=== PATIENT | female | born 1990 | race Caucasian/White ===

== ENCOUNTER 2020-11-04 10:19 | Inpatient (IN) ==
[2020-11-04] MEDS ORDERED: PANTOPRAZOLE 40 MG TABLET PO ONE (10:45)
[2020-11-04] MEDS ORDERED: DIAZEPAM 5 MG TABLET PO ONE ×2 (10:45→10:48)
[2020-11-04] MEDS ORDERED: LACTATED RINGERS 1,000 ML IV SCH ×2 (11:00→14:30)
[2020-11-04] MEDS ORDERED: ceFAZolin 2,000 MG/50 ML DUPLEX IV ONE (11:10)
[2020-11-04] MEDS ORDERED: LIDOCAINE 1% 5 ML VIAL ONE (11:31)
[2020-11-04 11:48] LABS: Basophils % 0.2 % (0.0-0.8); Eosinophils % 0.5 % (0.00-10.9); Hematocrit 41.7 VOL% (35.7-47.0); Hemoglobin 13.7 GM/DL (12.0-16.0); Immature Granulocytes % 0.7 %; Immature Granulocytes Absolute 0.06 #; Lymphocytes # 1.6 10*3/uL (1.4-4.0); Lymphocytes % 18.6 % (21.3-54.2); Mean Corpuscular HGB Conc 32.9 GM/DL (32-36); Mean Corpuscular Volume 83.2 FL (87-102); Mean Platelet Volume 10.4 FL (9.6-12.0); Monocytes % 5.3 % (1.7-12.7); Neutrophils % 74.7 % (38.7-73.9); Platelet Count 235 T/CUMM (130-400); Red Blood Count 5.01 MC/CUMM (3.8-5.5); Red Cell Distribution Width 12.2 % (9.3-17.3); White Blood Count 8.5 T/CUMM (4-12)
[2020-11-04 11:54] LABS: Potassium 3.9 MMOL/L (3.5-5.1)
[2020-11-04] MEDS ORDERED: ONDANSETRON 4 MG/2 ML VIAL ONE ×2 (11:54→12:46)
[2020-11-04] MEDS ORDERED: propofoL 200 MG/20 ML VIAL IV ONE (11:54)
[2020-11-04] MEDS ORDERED: MIDAZOLAM 2 MG/2 ML VIAL ONE (11:55)
[2020-11-04] MEDS ORDERED: fentaNYL 100 MCG/2 ML VIAL ONE ×2 (11:55→13:02)
[2020-11-04] MEDS ORDERED: SEVOFLURANE 1 UNIT/15 MINUTE INH ONE ×2 (12:04→14:04)
[2020-11-04] MEDS ORDERED: LIDOCAINE 2% 5 ML VIAL ONE (12:42)
[2020-11-04] MEDS ORDERED: ACETAMINOPHEN INJ 1,000 MG/100 ML VIAL IV ONE (12:42)
[2020-11-04] MEDS ORDERED: KETOROLAC 30 MG/1 ML VIAL ONE (12:45)
[2020-11-04] MEDS ORDERED: ROPIVACAINE 0.5% 30 ML VIAL ONE (13:01)
[2020-11-04] MEDS ORDERED: DEXAMETHASONE 4 MG/1 ML VIAL ONE (13:02)
[2020-11-04] MEDS ORDERED: ESMOLOL 100 MG/10 ML VIAL IV ONE (13:29)
[2020-11-04] MEDS ORDERED: DEXTROSE 50% 25 GM/50 ML VIAL IV PRN (14:05)
[2020-11-04] MEDS ORDERED: GLUCAGON 1 MG VIAL IM PRN (14:05)
[2020-11-04] MEDS ORDERED: MAGNESIUM HYDROXIDE SUSP 30 ML UDCUP PO PRN (14:06)
[2020-11-04] MEDS ORDERED: KETOROLAC 30 MG/1 ML VIAL IV PRN (14:07)
[2020-11-04] MEDS ORDERED: ONDANSETRON 4 MG/2 ML VIAL IV PRN (14:07)
[2020-11-04] MEDS ORDERED: MORPHINE 4 MG/1 ML VIAL IV PRN (14:07)
[2020-11-04] MEDS ORDERED: diphenhydrAMINE CAP 25 MG CAPSULE PO PRN (14:07)
[2020-11-04] MEDS ORDERED: VANCOMYCIN INJ 1,250 MG in SODIUM CHLORIDE 0.9% 250 ML IV SCH (14:30)
[2020-11-04] MEDS: VANCOMYCIN INJ 1,500 MG in SODIUM CHLORIDE 0.9% 500 ML IV SCH (17:05)
[2020-11-04] MEDS: INSULIN LISPRO 100 UNIT/ML SUBCUT SCH ×2 (18:10→21:43)
[2020-11-04] MEDS: INSULIN GLARGINE 100 UNIT/ML SUBCUT SCH (21:43)
[2020-11-04] MEDS: GABAPENTIN 400 MG CAPSULE PO SCH (21:43)
[2020-11-05] MEDS: VANCOMYCIN INJ 1,500 MG in SODIUM CHLORIDE 0.9% 500 ML IV SCH ×2 (03:35→16:54)
[2020-11-05 06:05] LABS: Basophils % 0.1 % (0.0-0.8); Eosinophils % 0.1 % (0.00-10.9); Immature Granulocytes % 0.4 %; Immature Granulocytes Absolute 0.04 #; Lymphocytes % 21.4 % (21.3-54.2); Mean Corpuscular HGB Conc 32.4 GM/DL (32-36); Mean Corpuscular Volume 85.5 FL (87-102); Mean Platelet Volume 10.5 FL (9.6-12.0); Platelet Count 230 T/CUMM (130-400); Red Blood Count 4.33 MC/CUMM (3.8-5.5); Red Cell Distribution Width 12.4 % (9.3-17.3); White Blood Count 9.2 T/CUMM (4-12)
[2020-11-05 06:24] LABS: Alanine Aminotransferase 36 U/L (13-56); Albumin 2.9 G/DL (3.4-5.0); Alkaline Phosphatase 201 U/L (45-117); Aspartate Amino Transferase 17 U/L (0-37); Bilirubin,Total < 0.39 MG/DL (0.2-1.0); Blood Urea Nitrogen 12 MG/DL (7-18); Calcium 8.7 MG/DL (8.5-10.1); Carbon Dioxide 26 MMOL/L (21-32); Estimated Glom Filtration Rate 172 ML/MIN; Glucose 231 MG/DL (74-106); Osmolality,Calculated 287.3 MOS/KG (273-304); Potassium 3.7 MMOL/L (3.5-5.1); Sodium 141 MMOL/L (136-145); Total Protein 6.8 G/DL (6.4-8.2)
[2020-11-05 06:29] LABS: Risk Ratio 5.44; VLDL Cholesterol 33.8 MG/DL
[2020-11-05 06:35] LABS: Calcium 8.7 MG/DL (8.5-10.1); Osmolality,Calculated 285.4 MOS/KG (273-304); Potassium 3.7 MMOL/L (3.5-5.1)
[2020-11-05 07:16] LABS: Sedimentation Rate-Westergren 57 MM/HR (0-20)
[2020-11-05] MEDS: INSULIN LISPRO 100 UNIT/ML SUBCUT SCH ×4 (08:08→20:57)
[2020-11-05] MEDS: INSULIN GLARGINE 100 UNIT/ML SUBCUT SCH (09:00)
[2020-11-05] MEDS: ROSUVASTATIN 20 MG TABLET PO SCH (09:32)
[2020-11-05] MEDS: GABAPENTIN 400 MG CAPSULE PO SCH ×3 (09:32→20:56)
[2020-11-05] MEDS: lisinopriL 10 MG TABLET PO SCH (09:32)
[2020-11-05] MEDS: risperiDONE 1 MG TABLET PO SCH (09:33)
[2020-11-05] MEDS: FONDAPARINUX 2.5 MG/0.5 ML SYRINGE SUBCUT SCH (09:36)
[2020-11-05] MEDS: VANCOMYCIN INJ 1,250 MG in SODIUM CHLORIDE 0.9% 250 ML IV SCH (17:58)
[2020-11-05] MEDS ORDERED: INSULIN GLARGINE 100 UNIT/ML SUBCUT SCH (21:00)
[2020-11-06] MEDS: VANCOMYCIN INJ 1,250 MG in SODIUM CHLORIDE 0.9% 250 ML IV SCH ×3 (02:56→17:49)
[2020-11-06 06:27] LABS: Basophils % 0.4 % (0.0-0.8); Eosinophils % 0.6 % (0.00-10.9); Hematocrit 34.5 VOL% (35.7-47.0); Hemoglobin 11.4 GM/DL (12.0-16.0); Immature Granulocytes % 0.3 %; Immature Granulocytes Absolute 0.02 #; Lymphocytes # 2.3 10*3/uL (1.4-4.0); Lymphocytes % 32.3 % (21.3-54.2); Mean Corpuscular Volume 85.2 FL (87-102); Mean Platelet Volume 10.2 FL (9.6-12.0); Monocytes % 6.7 % (1.7-12.7); Neutrophils % 59.7 % (38.7-73.9); Platelet Count 200 T/CUMM (130-400); Red Blood Count 4.05 MC/CUMM (3.8-5.5); Red Cell Distribution Width 12.8 % (9.3-17.3); White Blood Count 7.2 T/CUMM (4-12)
[2020-11-06 06:42] LABS: Calcium 8.5 MG/DL (8.5-10.1); Osmolality,Calculated 286.4 MOS/KG (273-304); Potassium 3.7 MMOL/L (3.5-5.1)
[2020-11-06] MEDS: ROSUVASTATIN 20 MG TABLET PO SCH (09:24)
[2020-11-06] MEDS: INSULIN LISPRO 100 UNIT/ML SUBCUT SCH ×4 (09:24→20:26)
[2020-11-06] MEDS: lisinopriL 10 MG TABLET PO SCH (09:25)
[2020-11-06] MEDS: GABAPENTIN 400 MG CAPSULE PO SCH ×3 (09:25→20:25)
[2020-11-06] MEDS: INSULIN GLARGINE 100 UNIT/ML SUBCUT SCH ×2 (09:25→20:25)
[2020-11-06] MEDS: risperiDONE 1 MG TABLET PO SCH (09:26)
[2020-11-06] MEDS: FONDAPARINUX 2.5 MG/0.5 ML SYRINGE SUBCUT SCH (10:17)
[2020-11-07] MEDS: VANCOMYCIN INJ 1,250 MG in SODIUM CHLORIDE 0.9% 250 ML IV SCH ×3 (02:59→22:55)
[2020-11-07 05:11] LABS: Basophils % 0.3 % (0.0-0.8); Eosinophils # 0.1 10*3/uL (0.0-0.87); Eosinophils % 0.9 % (0.00-10.9); Hematocrit 34.2 VOL% (35.7-47.0); Hemoglobin 11.4 GM/DL (12.0-16.0); Immature Granulocytes % 0.3 %; Immature Granulocytes Absolute 0.02 #; Lymphocytes # 2.1 10*3/uL (1.4-4.0); Lymphocytes % 28.3 % (21.3-54.2); Mean Corpuscular HGB Conc 33.3 GM/DL (32-36); Mean Corpuscular Volume 84.2 FL (87-102); Monocytes % 8.2 % (1.7-12.7); Platelet Count 196 T/CUMM (130-400); Red Blood Count 4.06 MC/CUMM (3.8-5.5); Red Cell Distribution Width 12.4 % (9.3-17.3); White Blood Count 7.4 T/CUMM (4-12)
[2020-11-07 05:41] LABS: Calcium 8.5 MG/DL (8.5-10.1); Potassium 3.5 MMOL/L (3.5-5.1)
[2020-11-07] MEDS: INSULIN LISPRO 100 UNIT/ML SUBCUT SCH ×4 (08:15→21:18)
[2020-11-07] MEDS: INSULIN GLARGINE 100 UNIT/ML SUBCUT SCH ×2 (09:00→21:17)
[2020-11-07] MEDS: lisinopriL 10 MG TABLET PO SCH (09:57)
[2020-11-07] MEDS ORDERED: ROPIVACAINE 0.5% 30 ML VIAL ONE ×2 (10:14→10:15)
[2020-11-07] MEDS ORDERED: DEXAMETHASONE 4 MG/1 ML VIAL ONE (10:14)
[2020-11-07] MEDS ORDERED: BACITRACIN OINT 0.9 GM PACK TOP ONE (10:22)
[2020-11-07] MEDS ORDERED: MIDAZOLAM 2 MG/2 ML VIAL ONE (10:55)
[2020-11-07] MEDS ORDERED: PANTOPRAZOLE 40 MG TABLET PO ONE (11:00)
[2020-11-07] MEDS ORDERED: LACTATED RINGERS 1,000 ML IV SCH ×2 (11:00)
[2020-11-07] MEDS ORDERED: DIAZEPAM 5 MG TABLET PO ONE (11:00)
[2020-11-07] MEDS ORDERED: fentaNYL 100 MCG/2 ML VIAL ONE (11:23)
[2020-11-07] MEDS ORDERED: GLYCOPYRROLATE 0.4 MG/2 ML VIAL ONE (11:24)
[2020-11-07] MEDS ORDERED: LIDOCAINE 2% 5 ML VIAL ONE (11:29)
[2020-11-07] MEDS ORDERED: propofoL 200 MG/20 ML VIAL IV ONE (11:29)
[2020-11-07] MEDS ORDERED: SEVOFLURANE 1 UNIT/15 MINUTE INH ONE (12:28)
[2020-11-07] MEDS ORDERED: PERMETHRIN 1% LOTION 59 ML BOTTLE TOP ONE (13:03)
[2020-11-07] MEDS: GABAPENTIN 400 MG CAPSULE PO SCH ×3 (14:29→21:17)
[2020-11-07] MEDS: risperiDONE 1 MG TABLET PO SCH (14:30)
[2020-11-07] MEDS: ROSUVASTATIN 20 MG TABLET PO SCH (14:30)
[2020-11-07] MEDS: CIPROFLOXACIN 500 MG TABLET PO SCH (17:13)
[2020-11-08 05:53] LABS: Basophils % 0.1 % (0.0-0.8); Eosinophils # 0.1 10*3/uL (0.0-0.87); Eosinophils % 1.3 % (0.00-10.9); Hematocrit 35.8 VOL% (35.7-47.0); Hemoglobin 11.7 GM/DL (12.0-16.0); Immature Granulocytes % 0.3 %; Immature Granulocytes Absolute 0.02 #; Lymphocytes # 2.2 10*3/uL (1.4-4.0); Lymphocytes % 28.5 % (21.3-54.2); Mean Corpuscular HGB Conc 32.7 GM/DL (32-36); Mean Corpuscular Volume 85.9 FL (87-102); Mean Platelet Volume 10.2 FL (9.6-12.0); Monocytes % 6.9 % (1.7-12.7); Neutrophils % 62.9 % (38.7-73.9); Platelet Count 221 T/CUMM (130-400); Red Blood Count 4.17 MC/CUMM (3.8-5.5); Red Cell Distribution Width 12.6 % (9.3-17.3); White Blood Count 7.7 T/CUMM (4-12)
[2020-11-08] MEDS: VANCOMYCIN INJ 1,250 MG in SODIUM CHLORIDE 0.9% 250 ML IV SCH (05:53)
[2020-11-08 06:14] LABS: Calcium 9.1 MG/DL (8.5-10.1); Osmolality,Calculated 281.4 MOS/KG (273-304); Potassium 3.5 MMOL/L (3.5-5.1)
[2020-11-08 06:16] LABS: Calcium 9.1 MG/DL (8.5-10.1); Osmolality,Calculated 282.3 MOS/KG (273-304); Potassium 3.5 MMOL/L (3.5-5.1)
[2020-11-08] MEDS: INSULIN LISPRO 100 UNIT/ML SUBCUT SCH ×2 (08:14→12:09)
[2020-11-08] MEDS: risperiDONE 1 MG TABLET PO SCH (09:25)
[2020-11-08] MEDS: CIPROFLOXACIN 500 MG TABLET PO SCH (09:25)
[2020-11-08] MEDS: lisinopriL 10 MG TABLET PO SCH (09:25)
[2020-11-08] MEDS: GABAPENTIN 400 MG CAPSULE PO SCH (09:25)
[2020-11-08] MEDS: ROSUVASTATIN 20 MG TABLET PO SCH (09:25)
[2020-11-08] MEDS: INSULIN GLARGINE 100 UNIT/ML SUBCUT SCH (09:26)
[2020-11-08] MEDS: FONDAPARINUX 2.5 MG/0.5 ML SYRINGE SUBCUT SCH (11:07)
[2020-11-08 11:31] VITALS: BP 124/71
== END 2020-11-08 12:40 | disposition home health service (06) | DRG 493 ==
LOC: N.OR 10:19 → N.SDSINP 11:36 → N.3E 14:06
PROVIDERS: ADMIT Orthopaedic Surgery; ATTEND Orthopaedic Surgery

== ENCOUNTER 2022-05-28 17:41 | Inpatient (IN) ==
[2022-05-28] MEDS ORDERED: SODIUM CHLORIDE 0.9% 1,000 ML IV STA ×2 (18:45→20:02)
[2022-05-28 18:58] LABS: Basophils % 0.1 % (0.0-0.8); Hematocrit 37.4 VOL% (35.7-47.0); Hemoglobin 12.9 GM/DL (12.0-16.0); Immature Granulocytes % 0.4 %; Immature Granulocytes Absolute 0.06 #; Lymphocytes # 1.2 10*3/uL (1.4-4.0); Lymphocytes % 8.2 % (21.3-54.2); Mean Corpuscular HGB Conc 34.5 GM/DL (32-36); Mean Corpuscular Volume 80.3 FL (87-102); Mean Platelet Volume 11.2 FL (9.6-12.0); Monocytes # 0.9 10*3/uL (0.11-0.8); Monocytes % 6.1 % (1.7-12.7); Neutrophils % 85.2 % (38.7-73.9); Platelet Count 303 T/CUMM (130-400); Red Blood Count 4.66 MC/CUMM (3.8-5.5); Red Cell Distribution Width 12.8 % (9.3-17.3); White Blood Count 14.5 T/CUMM (4-12)
[2022-05-28 19:21] LABS: Arterial Base Excess iSTAT 2 MMOL/L (-2.5-2.5); Arterial Bicarbonate iSTAT 25.6 MMOL/L (20-26); Arterial O2 Saturation iSTAT 95 % (95-100); Arterial PCO2 iSTAT 35 MM HG (35-48); Arterial PO2 iSTAT 69 MM HG (80-95); Arterial Total CO2 iSTAT 27 MMO/L (23-27); Arterial pH iSTAT 7.468 (7.35-7.45)
[2022-05-28 19:52] LABS: Calcium 10.1 MG/DL (8.5-10.1); Osmolality,Calculated 284.5 MOS/KG (273-304); Potassium 2.6 MMOL/L (3.5-5.1)
[2022-05-28 20:00] LABS: Bacteria,Urine Occasional /HPF (Few); Mucus,Urine Occasional /LPF (Occasional); RBC,Urine 1 /HPF (0-4)
[2022-05-28 20:01] LABS: Bilirubin,Urine Negative (Negative); Blood, Urine Small mg/dL (Negative); Glucose,Urine (UA) >=1000 mg/dL (Negative); Ketones,Urine 80 mg/dL (Negative); Nitrite,Urine Negative (Negative); Protein,Urine Negative (Negative); Urine Appearance Clear (Clear); Urine Color Yellow (Yellow); Urine Specific Gravity 1.003 (1.001-1.035); Urine Urobilinogen 0.2 eU/dL (<2.0)
[2022-05-28] MEDS: POTASSIUM CHLORIDE RIDER 10 MEQ/100 ML PREMIX IV SCH ×4 (20:21→23:44)
[2022-05-28] MEDS ORDERED: ONDANSETRON 4 MG/2 ML VIAL IV PRN (21:48)
[2022-05-28] MEDS ORDERED: ALBUTEROL 2.5 MG/3 ML NEB RESP TX PRN (21:48)
[2022-05-28] MEDS ORDERED: INSULIN REGULAR DRIP 100 ML IV PRN (21:53)
[2022-05-28] MEDS ORDERED: INSULIN REGULAR 100 UNIT/ML IV STA (21:53)
[2022-05-28] MEDS ORDERED: INSULIN REGULAR 100 UNIT/ML SUBCUT STA (21:53)
[2022-05-28] MEDS ORDERED: LACTATED RINGERS 1,000 ML IV ONE (21:54)
[2022-05-28] MEDS ORDERED: hydrALAZINE 20 MG/1 ML VIAL IV PRN (21:58)
[2022-05-28] MEDS: ENOXAPARIN 40 MG/0.4 ML SYRINGE SUBCUT SCH (22:39)
[2022-05-28 22:59] LABS: Calcium 9.3 MG/DL (8.5-10.1); Osmolality,Calculated 280.8 MOS/KG (273-304); Potassium 3.1 MMOL/L (3.5-5.1)
[2022-05-28] MEDS: LACTATED RINGERS 1,000 ML IV SCH (23:43)
[2022-05-28] MEDS: risperiDONE 1 MG TABLET PO SCH (23:45)
[2022-05-29] MEDS ORDERED: INSULIN REGULAR 100 UNIT/ML SUBCUT SCH (02:00)
[2022-05-29] MEDS: cloNIDine 0.1 MG TABLET PO SCH ×2 (02:36→20:26)
[2022-05-29] MEDS: INSULIN REGULAR 100 UNIT/ML SUBCUT SCH ×5 (05:02→20:23)
[2022-05-29] MEDS: LACTATED RINGERS 1,000 ML IV SCH ×4 (05:03→18:49)
[2022-05-29 05:19] LABS: Basophils % 0.1 % (0.0-0.8); Eosinophils % 0.1 % (0.00-10.9); Hematocrit 29.9 VOL% (35.7-47.0); Hemoglobin 10.4 GM/DL (12.0-16.0); Immature Granulocytes % 0.3 %; Immature Granulocytes Absolute 0.03 #; Lymphocytes # 1.9 10*3/uL (1.4-4.0); Lymphocytes % 20.3 % (21.3-54.2); Mean Corpuscular HGB Conc 34.8 GM/DL (32-36); Mean Corpuscular Volume 79.5 FL (87-102); Mean Platelet Volume 10.7 FL (9.6-12.0); Monocytes # 0.6 10*3/uL (0.11-0.8); Monocytes % 6.5 % (1.7-12.7); Neutrophils % 72.7 % (38.7-73.9); Platelet Count 225 T/CUMM (130-400); Red Blood Count 3.76 MC/CUMM (3.8-5.5); Red Cell Distribution Width 12.8 % (9.3-17.3); White Blood Count 9.2 T/CUMM (4-12)
[2022-05-29 05:58] LABS: Calcium 8.9 MG/DL (8.5-10.1); Osmolality,Calculated 274.2 MOS/KG (273-304)
[2022-05-29 06:04] LABS: Potassium 2.4 MMOL/L (3.5-5.1)
[2022-05-29] MEDS: POTASSIUM CHLORIDE RIDER 10 MEQ/100 ML PREMIX IV PRN ×3 (06:21→09:47)
[2022-05-29] MEDS ORDERED: NON-FORMULARY MEDICATION (Insulin Aspart U-100 [Novolog Flexpen U-100 Insulin] 100 unit/mL SUBCUT SCH (08:00)
[2022-05-29] MEDS: PANTOPRAZOLE 40 MG TABLET PO SCH (08:12)
[2022-05-29] MEDS: GABAPENTIN 400 MG CAPSULE PO SCH ×2 (08:12→20:21)
[2022-05-29] MEDS ORDERED: RISPERIDONE 2 MG PO SCH (09:00)
[2022-05-29] MEDS ORDERED: INSULIN GLARGINE 100 UNIT/ML SUBCUT SCH (09:00)
[2022-05-29] MEDS: POTASSIUM BICARB EFFERVESCENT 20 MEQ TAB.EFF PO SCH ×4 (09:46→20:22)
[2022-05-29 12:20] LABS: Calcium 8.6 MG/DL (8.5-10.1); Osmolality,Calculated 275.2 MOS/KG (273-304); Potassium 3.1 MMOL/L (3.5-5.1)
[2022-05-29] MEDS: risperiDONE 1 MG TABLET PO SCH (20:21)
[2022-05-29] MEDS: ENOXAPARIN 40 MG/0.4 ML SYRINGE SUBCUT SCH (20:23)
[2022-05-30] MEDS: POTASSIUM BICARB EFFERVESCENT 20 MEQ TAB.EFF PO SCH (01:00)
[2022-05-30] MEDS: INSULIN REGULAR 100 UNIT/ML SUBCUT SCH ×3 (01:20→08:47)
[2022-05-30 01:50] LABS: Basophils % 0.1 % (0.0-0.8); Eosinophils % 0.1 % (0.00-10.9); Hemoglobin 9.5 GM/DL (12.0-16.0); Immature Granulocytes % 1.3 %; Immature Granulocytes Absolute 0.09 #; Lymphocytes # 1.6 10*3/uL (1.4-4.0); Lymphocytes % 24.2 % (21.3-54.2); Mean Corpuscular HGB Conc 33.9 GM/DL (32-36); Mean Corpuscular Volume 81.9 FL (87-102); Mean Platelet Volume 10.5 FL (9.6-12.0); Monocytes # 0.5 10*3/uL (0.11-0.8); Monocytes % 6.9 % (1.7-12.7); Neutrophils % 67.4 % (38.7-73.9); Platelet Count 168 T/CUMM (130-400); Red Blood Count 3.42 MC/CUMM (3.8-5.5); Red Cell Distribution Width 12.7 % (9.3-17.3); White Blood Count 6.7 T/CUMM (4-12)
[2022-05-30] MEDS: ACETAMINOPHEN 325 MG TABLET PO PRN ×3 (02:05→16:49)
[2022-05-30 02:10] LABS: Calcium 9.1 MG/DL (8.5-10.1); Osmolality,Calculated 278.2 MOS/KG (273-304); Potassium 3.8 MMOL/L (3.5-5.1)
[2022-05-30 02:19] LABS: Lymphocytes 18 % (20-55); Total Cells Counted 100
[2022-05-30 02:20] LABS: Platelet Estimate Adequate
[2022-05-30] MEDS: LACTATED RINGERS 1,000 ML IV SCH ×5 (02:20→23:46)
[2022-05-30 02:46] LABS: Bacteria,Urine Occasional /HPF (Few); Bilirubin,Urine Negative (Negative); Blood, Urine Trace mg/dL (Negative); Glucose,Urine (UA) >1000 mg/dL (Negative); Ketones,Urine 15 mg/dL (Negative); Mucus,Urine Occasional /LPF (Occasional); Nitrite,Urine Negative (Negative); Protein,Urine Trace mg/dL (Negative); RBC,Urine 1 /HPF (0-4); Urine Appearance Clear (Clear); Urine Color Yellow (Yellow)
[2022-05-30] MEDS ORDERED: SODIUM CHLORIDE 0.9% 2,000 ML IV ONE ×2 (05:09→18:37)
[2022-05-30] MEDS ORDERED: VANCOMYCIN INJ 1,250 MG in SODIUM CHLORIDE 0.9% 250 ML IV ONE (06:45)
[2022-05-30] MEDS ORDERED: PIPERACILLIN/TAZOBACTAM 3,375 MG in SODIUM CHLORIDE 0.9% 100 ML IV ONE (06:45)
[2022-05-30] MEDS: GABAPENTIN 400 MG CAPSULE PO SCH ×2 (08:47→20:18)
[2022-05-30] MEDS: PANTOPRAZOLE 40 MG TABLET PO SCH (08:47)
[2022-05-30] MEDS ORDERED: INSULIN REGULAR 100 UNIT/ML SUBCUT SCH (09:00)
[2022-05-30] MEDS ORDERED: INSULIN GLARGINE 100 UNIT/ML SUBCUT SCH (09:00)
[2022-05-30] MEDS: INSULIN LISPRO 100 UNIT/ML SUBCUT SCH ×5 (12:11→20:15)
[2022-05-30] MEDS: NYSTATIN/TRIAMCINOLONE CREAM 15 GM TUBE TOP SCH ×2 (12:12→21:21)
[2022-05-30] MEDS: ALBUTEROL 2.5 MG/3 ML NEB RESP TX SCH ×2 (14:09→23:35)
[2022-05-30] MEDS ORDERED: IBUPROFEN 400 MG TABLET PO ONE (17:04)
[2022-05-30] MEDS: cefTRIAXone 2,000 MG in SODIUM CHLORIDE 0.9% 100 ML IV SCH (19:48)
[2022-05-30] MEDS: risperiDONE 1 MG TABLET PO SCH (20:17)
[2022-05-30] MEDS: ENOXAPARIN 40 MG/0.4 ML SYRINGE SUBCUT SCH (20:18)
[2022-05-30] MEDS: cloNIDine 0.1 MG TABLET PO SCH (20:18)
[2022-05-30] MEDS: ZINC OXIDE 16% PASTE 57 GM TUBE TOP SCH (21:57)
[2022-05-30] MEDS: AZITHROMYCIN INJ 500 MG in SODIUM CHLORIDE 0.9% 250 ML IV SCH (22:35)
[2022-05-31] MEDS: LACTATED RINGERS 1,000 ML IV SCH ×2 (03:02→12:33)
[2022-05-31 05:01] LABS: Basophils % 0.3 % (0.0-0.8); Eosinophils % 0.5 % (0.00-10.9); Hematocrit 29.6 VOL% (35.7-47.0); Hemoglobin 9.6 GM/DL (12.0-16.0); Immature Granulocytes % 4.1 %; Lymphocytes # 1.8 10*3/uL (1.4-4.0); Lymphocytes % 23.7 % (21.3-54.2); Mean Corpuscular HGB Conc 32.4 GM/DL (32-36); Mean Corpuscular Volume 86.5 FL (87-102); Mean Platelet Volume 10.8 FL (9.6-12.0); Monocytes # 0.4 10*3/uL (0.11-0.8); Monocytes % 5.8 % (1.7-12.7); NRBC # 0.03 10*3/uL; Neutrophils % 65.6 % (38.7-73.9); Platelet Count 181 T/CUMM (130-400); Red Blood Count 3.42 MC/CUMM (3.8-5.5); Red Cell Distribution Width 13.2 % (9.3-17.3); White Blood Count 7.4 T/CUMM (4-12)
[2022-05-31 05:22] LABS: Calcium 8.1 MG/DL (8.5-10.1); Osmolality,Calculated 283.8 MOS/KG (273-304); Potassium 3.4 MMOL/L (3.5-5.1)
[2022-05-31 05:27] LABS: Band Neutrophils 1 % (0-10); Eosinophils 2 % (0-10); Hypochromia Slight; Lymphocytes 19 % (20-55); Microcytosis Slight; Platelet Estimate Adequate; Total Cells Counted 100
[2022-05-31] MEDS ORDERED: MAGNESIUM SULF RIDER 2 GM/50 ML PREMIX IV ONE (07:10)
[2022-05-31] MEDS: ALBUTEROL 2.5 MG/3 ML NEB RESP TX SCH ×3 (07:57→23:23)
[2022-05-31] MEDS: INSULIN LISPRO 100 UNIT/ML SUBCUT SCH ×7 (08:32→22:00)
[2022-05-31] MEDS: PANTOPRAZOLE 40 MG TABLET PO SCH (08:34)
[2022-05-31] MEDS: GABAPENTIN 400 MG CAPSULE PO SCH ×2 (08:34→20:58)
[2022-05-31] MEDS: GUANFACINE PO SCH (08:35)
[2022-05-31] MEDS: ZINC OXIDE 16% PASTE 57 GM TUBE TOP SCH ×2 (08:36→20:56)
[2022-05-31] MEDS: NYSTATIN/TRIAMCINOLONE CREAM 15 GM TUBE TOP SCH ×2 (08:36→20:58)
[2022-05-31] MEDS: INSULIN GLARGINE 100 UNIT/ML SUBCUT SCH (09:33)
[2022-05-31] MEDS: cefTRIAXone 2,000 MG in SODIUM CHLORIDE 0.9% 100 ML IV SCH (11:48)
[2022-05-31] MEDS: POTASSIUM CHLORIDE RIDER 10 MEQ/100 ML PREMIX IV PRN ×3 (15:38→18:21)
[2022-05-31] MEDS: ENOXAPARIN 40 MG/0.4 ML SYRINGE SUBCUT SCH (20:57)
[2022-05-31] MEDS: cloNIDine 0.1 MG TABLET PO SCH (20:57)
[2022-05-31] MEDS: risperiDONE 1 MG TABLET PO SCH (20:58)
[2022-05-31] MEDS: AZITHROMYCIN INJ 500 MG in SODIUM CHLORIDE 0.9% 250 ML IV SCH (20:59)
[2022-06-01] MEDS: LACTATED RINGERS 1,000 ML IV SCH (02:46)
[2022-06-01] MEDS: ACETAMINOPHEN 325 MG TABLET PO PRN (07:16)
[2022-06-01 07:55] VITALS: BP 127/83
[2022-06-01] MEDS: INSULIN LISPRO 100 UNIT/ML SUBCUT SCH ×2 (08:32→08:38)
[2022-06-01] MEDS: PANTOPRAZOLE 40 MG TABLET PO SCH (08:33)
[2022-06-01] MEDS: GUANFACINE PO SCH (08:33)
[2022-06-01] MEDS: GABAPENTIN 400 MG CAPSULE PO SCH (08:33)
[2022-06-01] MEDS: INSULIN GLARGINE 100 UNIT/ML SUBCUT SCH (08:33)
[2022-06-01] MEDS: ZINC OXIDE 16% PASTE 57 GM TUBE TOP SCH (08:33)
[2022-06-01] MEDS: NYSTATIN/TRIAMCINOLONE CREAM 15 GM TUBE TOP SCH (08:34)
[2022-06-01 08:51] LABS: Basophils % 0.1 % (0.0-0.8); Eosinophils # 0.1 10*3/uL (0.0-0.87); Eosinophils % 0.8 % (0.00-10.9); Hematocrit 29.2 VOL% (35.7-47.0); Hemoglobin 9.3 GM/DL (12.0-16.0); Immature Granulocytes % 3.6 %; Immature Granulocytes Absolute 0.29 #; Lymphocytes # 2.1 10*3/uL (1.4-4.0); Mean Corpuscular HGB Conc 31.8 GM/DL (32-36); Mean Corpuscular Volume 86.1 FL (87-102); Mean Platelet Volume 10.7 FL (9.6-12.0); Monocytes # 0.6 10*3/uL (0.11-0.8); Monocytes % 7.9 % (1.7-12.7); NRBC # 0.03 10*3/uL; Neutrophils % 61.6 % (38.7-73.9); Platelet Count 194 T/CUMM (130-400); Red Blood Count 3.39 MC/CUMM (3.8-5.5); Red Cell Distribution Width 13.3 % (9.3-17.3)
[2022-06-01 09:08] LABS: Calcium 8.3 MG/DL (8.5-10.1); Osmolality,Calculated 277.1 MOS/KG (273-304)
[2022-06-01] MEDS ORDERED: DESITIN 4OZ/NYSTATIN 15 GRAM MIXTURE PASTE TOP SCH (10:16)
[2022-06-01] MEDS ORDERED: INSULIN LISPRO 100 UNIT/ML SUBCUT SCH (12:00)
[2022-06-01] MEDS ORDERED: AZITHROMYCIN 250 MG TABLET PO SCH (15:00)
== END 2022-06-01 11:50 | disposition home or self-care (01) | DRG 637 ==
LOC: N.ED 17:41 → N.ICU 21:48 → SUATTDRO 21:48 → N.ICU 23:50 → N.2E 05-29 17:16
PROVIDERS: ADMIT Internal Medicine; ATTEND Emergency Medicine